=== PATIENT | female | born 1975 | race Caucasian/White ===

== ENCOUNTER 2024-10-03 10:27 | Outpatient (CLI) | payer OTHER, SELFPAY ==
--- NOTE | 2024-10-03 10:45 | CRLHL7_ITS ---
For Patients: As a result of the Cures Act, medical imaging exams and procedure reports are released immediately into your electronic medical record. You may view this report before your referring provider. If you have questions, please contact your health care provider. DIGITAL DIAGNOSTIC BILATERAL MAMMOGRAM USING TOMOSYNTHESIS AND COMPUTER-AIDED DETECTION LEFT AXILLARY ULTRASOUND CLINICAL HISTORY: LEFT axillary lump. COMPARISON: 01/24/2021. TECHNIQUE: Digital BILATERAL mammogram in four projections with computer-aided detection. Tomosynthesis was used in this interpretation. Real-time ultrasound imaging of LEFT axillary with imaging documentation. BREAST COMPOSITION: There are scattered areas of fibroglandular density. FINDINGS: 3D CC/MLO BILATERAL mammogram images submitted. No suspicious mass, architectural distortion or adenopathy. No suspicious calcifications. Targeted LEFT axillary ultrasound performed. Normal subcutaneous tissues are present. No adenopathy or solid mass. No fluid collection. IMPRESSION: No evidence of malignancy. RECOMMENDATIONS: Routine screening mammography. A lay language report of this examination will be provided to the patient. BI-RADS Category 1: Negative Dictated by Sathish Short MD @ 10/03/2024 12:29:11 PM jj/Dictated by: Sathish Short MD @ 10/03/2024 12:29:00 PM (Electronically Signed)
--- NOTE | 2024-10-03 11:15 | CRLHL7_ITS ---
For Patients: As a result of the Cures Act, medical imaging exams and procedure reports are released immediately into your electronic medical record. You may view this report before your referring provider. If you have questions, please contact your health care provider. SEE DIGITAL DIAGNOSTIC BILATERAL MAMMOGRAM PERFORMED SAME DAY CRL:[email or web address]/Dictated by: Sathish Short MD @ 10/03/2024 12:29:00 PM (Electronically Signed)
== END 2024-10-03 10:28 | disposition home or self-care (01) ==
LOC: MAMMO 10:28
PROVIDERS: PCP Physician Assistant Medical; Visit Provider Physician Assistant Medical
DX: R22.32 Localized swelling, mass and lump, left upper limb (principal)
CPT/HCPCS: 76882; 77066; G0279